=== PATIENT | male | born 1970 | race Caucasian/White ===

== ENCOUNTER 2016-10-18 15:32 | Emergency (ER) | payer OTHER ==
--- NOTE | 2016-10-18 16:20 | DIAGNOSTIC IMAGING REPORT ---
PROCEDURE: XR CHEST 1 VIEW INDICATION: CHEST PAIN TECHNIQUE: Portable AP view 04:02 p.m. COMPARISON: Chest x-ray 09/27/2015 FINDINGS: Poor inspiration with minor bibasilar atelectasis. Heart and mediastinum are normal. Moderate degenerative changes of the spine. IMPRESSION: 1. Poor inspiration with minor bibasilar atelectasis.
--- NOTE | 2016-10-18 18:27 | DIAGNOSTIC IMAGING REPORT ---
PROCEDURE: XR HAND 3 OR 4 VIEWS - RIGHT INDICATION: Fall off of a truck TECHNIQUE: Four views of the right hand. COMPARISON: None. FINDINGS: Normal mineralization. No fractures. Normal osseous alignment. No suspicious soft-tissue calcification or radiodense foreign bodies. IMPRESSION: 1. Intact right hand.
--- NOTE | 2016-10-18 20:53 | ED CLINICAL REPORT ---
Clinical Report - Physicians/Mid Levels [facility] [address] [place] [address] 10/18/2016 15:33 Patient: FAINA PACHECO Time Seen: 15:36 Oct 18 2016. Arrived- By private vehicle. Historian- patient. CPT: ER phys charges level 5 plus (#[id number]). EKG interpretation (#[id number]). HISTORY OF PRESENT ILLNESS Chief Complaint: CHEST PAIN. SHORTNESS OF BREATH. It is described as sharp, "pain" and well localized and it is described as located in the epigastric area and substernal area. At its maximum, severity described as moderate and 6 / 10. When seen in the E.D., severity described as moderate and 6 / 10. Modifying factors- worsened by movement and deep breaths. Not relieved by anything. This started yesterday and is still present. Onset during light activity. No nausea, vomiting or diaphoresis. He has had difficulty breathing. Similar symptoms previously: None. Recent medical care: Not recently seen/assessed. REVIEW OF SYSTEMS No fever, chills, cough, pedal edema or calf pain. No fainting episodes, sore throat, abdominal pain, black stools or difficulty with urination. No skin rash, enlarged lymph nodes, joint pain or bloody stools. All systems otherwise negative, except as recorded above. PAST HISTORY GI disease. Anxiety Reaction. Hyperlipidemia. Hypercholesterolemia. UTI - Urinary Tract Infection. Hypertension. Cellulitis. Chalazion. Cystitis. Diabetes Mellitus. Sinusitis. Bronchitis. No history of heart disease, lung disease, renal disease or neurological disease. Severe gastroesophageal reflux. Additional Surgeries: no known surgeries. Medications: Blood Pressure pill (new med). chlesterol med. Glipizide Oral. MetFORMIN HCl Oral. Allergies: No Known Drug Allergy. SOCIAL HISTORY Former smoker. ADDITIONAL NOTES The nursing notes have been reviewed. PHYSICAL EXAM Vital Signs: 10/18/2016 15:37 BP: 132/73. HR: 81. RR: 141. O2 saturation: 98%. Temp: 98.1 F. Pain level now: 5/10. Appearance: Alert. Oriented X3. No acute distress. Eyes: Pupils equal, round and reactive to light. Eyes normal inspection. ENT: Ears normal. Nose normal. Pharynx normal. Neck: Normal inspection. Neck supple. CVS: Normal heart rate and rhythm. Heart sounds normal. Pulses normal. Respiratory: No respiratory distress. Breath sounds normal. (Tender over the lower costal margin centrally.). Abdomen: Soft. Moderate tenderness in the epigastric area. Bowel sounds normal. No mass. No distention or femoral pulse deficit. (No bruit). Back: Normal external inspection. No CVA tenderness. Skin: Skin warm. Normal skin color. No rash. Extremities: Extremities exhibit normal ROM. No lower extremity edema. Neuro: Oriented X 3. No motor deficit. No sensory deficit. Reflexes normal. LABS, X-RAYS, AND EKG EKG: Normal sinus rhythm. Normal P waves. Normal COLETTE. Normal QRS complex. Normal axis. Normal ST and T waves. The study has been interpreted contemporaneously. The study has been independently viewed by me. The EKG appears to be a good tracing. Chest X-ray: (mild bibasilar atelectasis). Views: AP (portable). Technique: poor inspiration. The X-rays were independently viewed by me and interpreted by the radiologist. Laboratory Tests: ESR: (MARCIE: 10/18/2016 15:30) ( [facility] 10/18[facility] 17:14) Final results Test Result Flag Units (Reference) SED RATE WESTERGREN 24 H mm/hr (0-15) CBC w Diff: (MARCIE: 10/18/2016 15:30) ( [facility] 10/18/2016 16:05) Final results Test Result Flag Units (Reference) WHITE BLOOD COUNT 8.3 K/uL (4.5-11.5) RED BLOOD COUNT 4.39 L M/uL (4.50-5.90) HEMOGLOBIN 13.6 gm/dL (13.5-17.5) HEMATOCRIT 40.6 L % (41.0-53.0) MEAN CELL VOLUME 92 fL (80-100) MEAN CORPUSCULAR HGB 31 pg (26-34) MEAN CORPUSCULAR HGB CONC 34 g/dL (31-37) RED CELL DISTRIBUTION WIDTH 14.1 % (11.6-14.8) PLATELET COUNT 220 K/uL (150-400) NEUTROPHIL % 58.0 % (50-75) LYMPH % 30.6 % (25-40) MONO % 8.2 % (3-14) EOSINOPHIL % 2.8 % (0-4) BASOPHIL % 0.4 % (0-2) [id number]: (MARCIE: 10/18/2016 15:30) ( [facility] 10/18/2016 18:24) Final results Test Result Flag Units (Reference) D-DIMER QUANTITATIVE < 0.27 L ug/mLFEU (0.27-0.52) The primary value of this quantitative assay relates toits negative predictive value (i.e. exclusion) of pulmonaryembolism/deep vein thrombosis/DIC.Elevated levels of d-dimer may also occur with:, age, cancer, inflammation, liver disease,post-op, infection, hematoma, coronary disease, peripheralarteriopathy, bleeding disorders and thrombolytic treatment.Results should be correlated with other clinical andradiological data.Testing Methodology: Latex Immunoassay Troponin-I: (MARCIE: 10/18/2016 19:45) ( [facility] 10/18/2016 20:47) Final results Test Result Flag Units (Reference) TROPONIN I <0.05 ng/mL (0.00-1.5) Results calledPerson contacted: DR Wright the result read back? Y]Date: 10/18/16 Time: y: LAB.CDGTROPONIN REFERENCE RANGE:<0.1 NEGATIVE0.1-1.5 INDETERMINANT>1.5 POSITIVE Lipase: (MARCIE: 10/18/2016 15:30) ( [facility] 10/18/2016 18:37) Final results Test Result Flag Units (Reference) LIPASE 165 U/L (73-393) AMYLASE 54 U/L (25-115) [id number]: (MARCIE: 10/18/2016 15:30) ( MsgRcvd 10/18/2016 16:59) Final results Test Result Flag Units (Reference) C-REACTIVE PROTEIN 0.5 mg/dL (0.0-0.9) CHEM 13 PANEL: (MARCIE: 10/18/2016 15:30) ( MsgRcvd 10/18/2016 16:18) Final results Test Result Flag Units (Reference) GLUCOSE 188 H mg/dL (70-110) BUN 13 mg/dL (7-18) CREATININE 1.0 mg/dL (0.6-1.3) Estimated GFR >60 mL/min Estimated GFR- >60 mL/min Note: Persistent reduction over 3 months in eGFR<60 mL/min/1.73 m2 defines CKD. Patients with eGFR values>=60 mL/min/1.73 m2 may also have CKD if evidence ofpersistent proteinuria. Additional information may be foundat www.kidney.org. SODIUM 140 mmol/L (136-145) POTASSIUM 3.8 mmol/L (3.5-5.1) CHLORIDE 104 mmol/L (98-107) CARBON DIOXIDE 29 mmol/L (21-32) CALCIUM 9.0 mg/dL (8.5-10.1) TOTAL PROTEIN 8.1 g/dL (6.4-8.2) ALBUMIN 3.6 g/dL (3.3-5.0) BILIRUBIN, TOTAL 0.6 mg/dL (0.0-1.0) ALKALINE PHOSPHATASE 85 U/L (46-116) AST (SGOT) 29 U/L (15-37) ALT (SGPT) 57 U/L (12-78) MAGNESIUM 2.1 mg/dL (1.8-2.4) CPK 118 U/L (24-260) TROPONIN I <0.05 L ng/mL (0.00-1.5) TROPONIN REFERENCE RANGE:<0.1 NEGATIVE0.1-1.5 INDETERMINANT>1.5 POSITIVE . PROGRESS AND PROCEDURES Course of Care: heplock White GI cocktail. Pain down to a 2 Carafate 20 ml po Protonix 80 mg IV Patient is stable. Symptoms much better. Patient/family counseled. Disposition: Discharged. Condition: stable and improved. CLINICAL IMPRESSION Chest pain of GI origin (due to esophagitis). INSTRUCTIONS No strenuous activity. Do not work tomorrow, for one day until better. Avoid alcohol and NSAIDS. Examples of NSAIDS include aspirin, ibuprofen (Advil) and naproxen (Aleve). Avoid spicy foods. Drink plenty of fluids. Other diet: caffeine. Warnings: Further evaluation is necessary. GENERAL WARNINGS: Return or contact your physician immediately if your condition worsens or changes unexpectedly, if not improving as expected, or if other problems arise. Prescription Medications: Carafate 1 gm tablets: take 1 orally four times daily (1 hour before meals and at bedtime). Dispense sixty (60). No refills. Substitution is permissible. Prilosec 40 mg capsules: take 1 capsule orally every day for 10 days. Dispense ten (10). No refill. Follow-up: Follow up with your doctor in five days even if well. Call for an appointment. Understanding of the discharge instructions verbalized by patient. Discharge instructions reviewed (friend). (Electronically signed by Ankit Henderson MD 10/18/2016 21:59)
--- NOTE | 2016-10-18 20:53 | ED ORDER SUMMARY ---
..... Patient: FAINA PACHECO OrderSheet [facility] VisitID: [id number] [place] [address] 45y, M Registration Date/Time: 10/18/2016 ORDER SHEET Weight: 129.2 kg (stated) Allergies: No Known Drug Allergy GENERAL ORDERS: Biological Aide (Continuous) (SOB w/CP) (15:51 10/18/2016 JRdelphine R.N. verbal order read back to Garret EDWARDS) (16:42 JRomanelli R.N.) Chest 1V Urgent (15:51 10/18/2016 John R.N. verbal order read back to Garret EDWARDS) (Ack 15:54 Shahrzad) (16:23 Faviola) Cardiac Panel Stat (15:51 10/18/2016 John R.N. verbal order read back to Garret EDWARDS) (Ack 15:54 Shahzrad) (16:43 JRomanelli R.N.) EKG - ER Stat (15:51 10/18/2016 John R.N. verbal order read back to Garret EDWARDS) (15:53 Shahrzad) Pulse oximeter (15:51 10/18/2016 John R.N. verbal order read back to Garret EDWARDS) (16:42 JRomanelli R.N.) Old Records (15:51 10/18/2016 John R.N. verbal order read back to Garret EDWARDS) (Ack 15:54 Shahrzad) (17:44 JRomanelli R.N.) ESR Urgent (16:42 10/18/2016 Garret EDWARDS) (Ack 16:44 Shahrzad) (17:44 omanelli R.N.) CRP Urgent (16:42 10/18/2016 Garret EDWARDS) (Ack 16:44 Shahrzad) (17:44 JRomanelli R.N.) Hand 3 or 4V Right Urgent (17:56 10/18/2016 Garret EDWARDS) (Ack 17:57 Shahrzad) (18:12 MCampbell) D-Dimer Urgent (17:56 10/18/2016 Garret EDWARDS) (Ack 17:57 KHoerner) (18:13 JRomanelli R.N.) (18:19 KHoerner) Lipase Urgent (17:56 10/18/2016 Garret EDWARDS) (Ack 17:57 KHoerner) (18:13 JRomanelli R.N.) (18:19 KHoerner) Amylase Urgent (17:56 10/18/2016 Garret EDWARDS) (Ack 17:57 KHoerner) (18:13 JRomanelli R.N.) (18:19 KHoerner) BP - Bilateral Arm (18:08 10/18/2016 Garret EDWARDS) (18:15 John R.N.) Troponin-I Urgent (19:30 10/18/2016 Garret EDWARDS) (Ack 19:35 LMuller) (20:51 HSoule) MEDICATION ORDERS: GI Cocktail WHITE PO 50 mL (NOW) (16:43 10/18/2016 Garret EDWARDS) (17:44 omanrosa R.N.) Carafate PO 20 ml (NOW) (17:56 10/18/2016 Garret EDWARDS) (18:23 John R.N.) IV FLUIDS: IV Saline Lock (15:51 10/18/2016 John R.N. verbal order read back to Garret EDWARDS) (17:21 JRomanelli R.N.) Protonix IVP 80mg 80 mg (Mix in NS 20ml over 4min) (17:56 10/18/2016 Garret EDWARDS) (18:30 omanrosa R.N.) ORDER SHEET NOTES: [Electronically signed by Ankit Henderson MD (21:59 10/18/2016)] [Electronically signed by Destiny Little (22:05 10/18/2016)] [Electronically locked/signed by Destiny Little (22:05 10/18/2016)]
--- NOTE | 2016-10-18 20:53 | ED CLINICAL REPORT ---
Clinical Report - Physicians/Mid Levels [facility] [address] [place] [address] 10/18/2016 15:33 Patient: FAINA PACHECO Time Seen: 15:36 Oct 18 2016. Arrived- By private vehicle. Historian- patient. CPT: ER phys charges level 5 plus (#[id number]). EKG interpretation (#[id number]). HISTORY OF PRESENT ILLNESS Chief Complaint: CHEST PAIN. SHORTNESS OF BREATH. It is described as sharp, "pain" and well localized and it is described as located in the epigastric area and substernal area. At its maximum, severity described as moderate and 6 / 10. When seen in the E.D., severity described as moderate and 6 / 10. Modifying factors- worsened by movement and deep breaths. Not relieved by anything. This started yesterday and is still present. Onset during light activity. No nausea, vomiting or diaphoresis. He has had difficulty breathing. Similar symptoms previously: None. Recent medical care: Not recently seen/assessed. REVIEW OF SYSTEMS No fever, chills, cough, pedal edema or calf pain. No fainting episodes, sore throat, abdominal pain, black stools or difficulty with urination. No skin rash, enlarged lymph nodes, joint pain or bloody stools. All systems otherwise negative, except as recorded above. PAST HISTORY GI disease. Anxiety Reaction. Hyperlipidemia. Hypercholesterolemia. UTI - Urinary Tract Infection. Hypertension. Cellulitis. Chalazion. Cystitis. Diabetes Mellitus. Sinusitis. Bronchitis. No history of heart disease, lung disease, renal disease or neurological disease. Severe gastroesophageal reflux. Additional Surgeries: no known surgeries. Medications: Blood Pressure pill (new med). chlesterol med. Glipizide Oral. MetFORMIN HCl Oral. Allergies: No Known Drug Allergy. SOCIAL HISTORY Former smoker. ADDITIONAL NOTES The nursing notes have been reviewed. PHYSICAL EXAM Vital Signs: 10/18/2016 15:37 BP: 132/73. HR: 81. RR: 141. O2 saturation: 98%. Temp: 98.1 F. Pain level now: 5/10. Appearance: Alert. Oriented X3. No acute distress. Eyes: Pupils equal, round and reactive to light. Eyes normal inspection. ENT: Ears normal. Nose normal. Pharynx normal. Neck: Normal inspection. Neck supple. CVS: Normal heart rate and rhythm. Heart sounds normal. Pulses normal. Respiratory: No respiratory distress. Breath sounds normal. (Tender over the lower costal margin centrally.). Abdomen: Soft. Moderate tenderness in the epigastric area. Bowel sounds normal. No mass. No distention or femoral pulse deficit. (No bruit). Back: Normal external inspection. No CVA tenderness. Skin: Skin warm. Normal skin color. No rash. Extremities: Extremities exhibit normal ROM. No lower extremity edema. Neuro: Oriented X 3. No motor deficit. No sensory deficit. Reflexes normal. LABS, X-RAYS, AND EKG EKG: Normal sinus rhythm. Normal P waves. Normal COLETTE. Normal QRS complex. Normal axis. Normal ST and T waves. The study has been interpreted contemporaneously. The study has been independently viewed by me. The EKG appears to be a good tracing. Chest X-ray: (mild bibasilar atelectasis). Views: AP (portable). Technique: poor inspiration. The X-rays were independently viewed by me and interpreted by the radiologist. Laboratory Tests: ESR: (MARCIE: 10/18/2016 15:30) ( [facility] 10/18/2016 17:14) Final results Test Result Flag Units (Reference) SED RATE WESTERGREN 24 H mm/hr (0-15) CBC w Diff: (MARCIE: 10/18/2016 15:30) ( [facility] 10/18/2016 16:05) Final results Test Result Flag Units (Reference) WHITE BLOOD COUNT 8.3 K/uL (4.5-11.5) RED BLOOD COUNT 4.39 L M/uL (4.50-5.90) HEMOGLOBIN 13.6 gm/dL (13.5-17.5) HEMATOCRIT 40.6 L % (41.0-53.0) MEAN CELL VOLUME 92 fL (80-100) MEAN CORPUSCULAR HGB 31 pg (26-34) MEAN CORPUSCULAR HGB CONC 34 g/dL (31-37) RED CELL DISTRIBUTION WIDTH 14.1 % (11.6-14.8) PLATELET COUNT 220 K/uL (150-400) NEUTROPHIL % 58.0 % (50-75) LYMPH % 30.6 % (25-40) MONO % 8.2 % (3-14) EOSINOPHIL % 2.8 % (0-4) BASOPHIL % 0.4 % (0-2) [id number]: (MARCIE: 10/18/2016 15:30) ( [facility] 10/18/2016 18:24) Final results Test Result Flag Units (Reference) D-DIMER QUANTITATIVE < 0.27 L ug/mLFEU (0.27-0.52) The primary value of this quantitative assay relates toits negative predictive value (i.e. exclusion) of pulmonaryembolism/deep vein thrombosis/DIC.Elevated levels of d-dimer may also occur with:, age, cancer, inflammation, liver disease,post-op, infection, hematoma, coronary disease, peripheralarteriopathy, bleeding disorders and thrombolytic treatment.Results should be correlated with other clinical andradiological data.Testing Methodology: Latex Immunoassay Troponin-I: (MARCIE: 10/18/2016 19:45) ( [facility] 10/18/2016 20:47) Final results Test Result Flag Units (Reference) TROPONIN I <0.05 ng/mL (0.00-1.5) Results calledPerson contacted: DR Wright the result read back? Y]Date: 10/18/16 Time: y: LAB.CDGTROPONIN REFERENCE RANGE:<0.1 NEGATIVE0.1-1.5 INDETERMINANT>1.5 POSITIVE Lipase: (MARCIE: 10/18/2016 15:30) ( [facility] 10/18/2016 18:37) Final results Test Result Flag Units (Reference) LIPASE 165 U/L (73-393) AMYLASE 54 U/L (25-115) [id number]: (MARCIE: 10/18/2016 15:30) ( MsgRcvd 10/18/2016 16:59) Final results Test Result Flag Units (Reference) C-REACTIVE PROTEIN 0.5 mg/dL (0.0-0.9) CHEM 13 PANEL: (MARCIE: 10/18/2016 15:30) ( MsgRcvd 10/18/2016 16:18) Final results Test Result Flag Units (Reference) GLUCOSE 188 H mg/dL (70-110) BUN 13 mg/dL (7-18) CREATININE 1.0 mg/dL (0.6-1.3) Estimated GFR >60 mL/min Estimated GFR- >60 mL/min Note: Persistent reduction over 3 months in eGFR<60 mL/min/1.73 m2 defines CKD. Patients with eGFR values>=60 mL/min/1.73 m2 may also have CKD if evidence ofpersistent proteinuria. Additional information may be foundat www.kidney.org. SODIUM 140 mmol/L (136-145) POTASSIUM 3.8 mmol/L (3.5-5.1) CHLORIDE 104 mmol/L (98-107) CARBON DIOXIDE 29 mmol/L (21-32) CALCIUM 9.0 mg/dL (8.5-10.1) TOTAL PROTEIN 8.1 g/dL (6.4-8.2) ALBUMIN 3.6 g/dL (3.3-5.0) BILIRUBIN, TOTAL 0.6 mg/dL (0.0-1.0) ALKALINE PHOSPHATASE 85 U/L (46-116) AST (SGOT) 29 U/L (15-37) ALT (SGPT) 57 U/L (12-78) MAGNESIUM 2.1 mg/dL (1.8-2.4) CPK 118 U/L (24-260) TROPONIN I <0.05 L ng/mL (0.00-1.5) TROPONIN REFERENCE RANGE:<0.1 NEGATIVE0.1-1.5 INDETERMINANT>1.5 POSITIVE . PROGRESS AND PROCEDURES Course of Care: heplock White GI cocktail. Pain down to a 2 Carafate 20 ml po Protonix 80 mg IV Patient is stable. Symptoms much better. Patient/family counseled. Disposition: Discharged. Condition: stable and improved. CLINICAL IMPRESSION Chest pain of GI origin (due to esophagitis). INSTRUCTIONS No strenuous activity. Do not work tomorrow, for one day until better. Avoid alcohol and NSAIDS. Examples of NSAIDS include aspirin, ibuprofen (Advil) and naproxen (Aleve). Avoid spicy foods. Drink plenty of fluids. Other diet: caffeine. Warnings: Further evaluation is necessary. GENERAL WARNINGS: Return or contact your physician immediately if your condition worsens or changes unexpectedly, if not improving as expected, or if other problems arise. Prescription Medications: Carafate 1 gm tablets: take 1 orally four times daily (1 hour before meals and at bedtime). Dispense sixty (60). No refills. Substitution is permissible. Prilosec 40 mg capsules: take 1 capsule orally every day for 10 days. Dispense ten (10). No refill. Follow-up: Follow up with your doctor in five days even if well. Call for an appointment. Understanding of the discharge instructions verbalized by patient. Discharge instructions reviewed (friend). (Electronically signed by Ankit Henderson MD 10/18/2016 21:59)
--- NOTE | 2016-10-18 20:53 | ED NURSING NOTES ---
Clinical Report - Nurses [facility] [place] [address] 10/18/2016 15:33 Patient: FAINA PACHECO TRIAGE Triage time 15:35 Oct 18 2016. Acuity: LEVEL 3. Chief Complaint: SHORTNESS OF BREATH and (Chest Discomfort). Alert. ALFREDO COMA SCORE: [place] Coma Scale: 15- eyes open spontaneously (4); best verbal response- oriented x 4 (5); best motor response- obeys commands (6). --15:46 Bryson Tobin R.N. 15:37 10/18/16. BP: 132/73. HR: 81 (regular and normal rate). RR: 141. O2 saturation: 98% on room air. Temp: 98.1 F. Pain level now: 09/19. --15:46 Bryson Tobin R.N. Weight: 129.2 kg stated. Height/Length: 71 inches Measured. BMI: 39.7. --15:42 Bryson Tobin R.N. Medications Blood Pressure pill (new med). chlesterol med. Glipizide Oral. MetFORMIN HCl Oral. --15:42 Bryson Tobin R.N. Medication/allergy information source: the patient. --15:46 Bryson Tobin R.N. Allergies No Known Drug Allergy. --15:42 Bryson Tobin R.N. History Arrived by private vehicle. Historian: patient. ( Sob associated with Chest Pain substernally). Onset. (about 2 days ago). He has had chest pain. Treatment AWNING FINISHER: None. PAST MEDICAL HX: Immunizations: status is unknown. SURGERY HX: No history of previous surgery. SOCIAL HX: Former smoker, end date 04/2016. No infectious disease exposure. ABUSE ASSESSMENT: No report of abuse. FALL RISK ASSESSMENT: Fall risk assessment completed. No fall risk identified. NUTRITIONAL RISK ASSESSMENT: The nutritional risk assessment revealed no deficiencies. FUNCTIONAL ASSESSMENT: Functional assessment: no impairments noted. LEARNING NEEDS ASSESSMENT: The learning needs assessment revealed no barriers. SKIN INTEGRITY ASSESSMENT: Skin integrity risk assessment completed. No skin integrity risk identified. --15:46 Bryson Tobin R.N. PROBLEMS: Anxiety Reaction. Hyperlipidemia. Hypercholesterolemia. UTI - Urinary Tract Infection. Hypertension. Cellulitis. Chalazion. Cystitis. Diabetes Mellitus. Sinusitis. Bronchitis. --15:45 Bryson Tobin R.N. Interventions ID band on patient. To treatment room. --15:46 Bryson Tobin R.N. PHYSICAL ASSESSMENT To room via wheelchair. GENERAL / NEURO / PSYCH: Alert. Oriented X 4. HEENT: Mucous membranes are pink. RESPIRATORY: No respiratory distress. Respirations not labored. CVS: Normal sinus rhythm noted. GI / : Abdomen soft and nontender. SKIN: Skin is warm and dry. Normal skin turgor. --15:46 Bryson Tobin R.N. RESPIRATORY: Decreased breath sounds in the right upper lung posteriorly. --15:49 Bryson Tobin R.N. NURSING PROGRESS NOTES Patient gowned. Reassurance given. Patient identifiers checked. Call light placed in reach. Side rails up. Bed placed in lowest position. Brakes of bed on. Patient ready for evaluation- chart flagged and ED physician notified. --15:50 Bryson Tobin R.N. 16:56 10/18/2016 Site #1 started via IV in the right forearm with an 20g angiocath, with aseptic technique and good blood return; one attempt. Blood drawn: rainbow set. Labeled in the presence of the patient and sent to the lab. Saline lock flushed with 10 mL saline. --17:21 Bryson Tobin R.N. 17:33 10/18/2016 White Gi Cocktail * PO Viscous Lidocaine 20 Viscous Lidocaine 20 mL and Mylanta 30 mL --17:44 Bryson Tobin R.N. 18:00 10/18/16. BP: 124/74. HR: 64. RR: 20. O2 saturation: 98% on room air. Pain level now: 07/20. Additional comments: Chest Pain. --18:13 Bryson Tobin R.N. 18:20 10/18/2016 Protonix * IVP 80 mg --18:30 Bryson Tobin R.N. 18:23 10/18/2016 Carafate (Sucralfate) PO Oral Suspension 2 gm given. Allergies verified and confirmed 5 rights. --18:23 Bryson Tobin R.N. Blood samples drawn from the right antecubital space peripheral IV site: cardiac enzymes (2nd set). Initial blood discarded and additional blood sent to lab. Line flushed with 10 mL normal saline post blood draw. --19:49 Destiny Little 19:49 10/18/16. BP: 125/76. HR: 70. RR: 16. O2 saturation: 99% on nasal cannula at 2 liters/minute. Pain level now: 07/20. Additional comments: Pain only with deep breath . --19:49 Destiny Little ( Patient and department editor updated on plan of care). --20:02 Destiny Little 20:54 10/18/2016 Site #1 removed upon discharge. Catheter intact. Bandaid applied. --20:54 Destiny Little. DISPOSITION / DISCHARGE 20:51 10/18/16. Condition at departure: improved and stable. The goals identified in the patient's plan of care were met. FALL RISK ASSESSMENT: Fall risk assessment completed. No fall risk identified. --20:51 Destiny Little 20:50 10/18/16. BP: 131/78. HR: 71. RR: 18. O2 saturation: 97% on room air. Pain level now: 07/20. --20:51 Destiny Little No learning barriers present. Discharge instructions provided and reviewed with the patient. Reviewed medication(s) side effects, precautions, dosing and course information. Prescription(s) given to the patient. Reviewed need for increased fluid intake. Patient and department editor verbalized understanding. Written instructions provided in Slovenian. ( Follow up with your PCP in three days. Return if your symptoms worsen or change in character. Reduce spicy and greasy food. Patient verbalized understanding and had no additional questions at this time.). The patient was discharged by the physician. He was discharged home and accompanied by department editor. He left the Emergency Department ambulatory and via private vehicle. Acid Crane Operator driving. --22:00 Destiny Little. Locked/Released at 10/18/2016 22:05 by Destiny Ltitle,
--- NOTE | 2016-10-18 20:53 | ED NURSING NOTES ---
Clinical Report - Nurses [facility] [place] [address] 10/18/2016 15:33 Patient: FAINA PACHECO TRIAGE Triage time 15:35 Oct 18 2016. Acuity: LEVEL 3. Chief Complaint: SHORTNESS OF BREATH and (Chest Discomfort). Alert. ALFREDO COMA SCORE: [place] Coma Scale: 15- eyes open spontaneously (4); best verbal response- oriented x 4 (5); best motor response- obeys commands (6). --15:46 Bryson Tobin R.N. 15:37 10/18/16. BP: 132/73. HR: 81 (regular and normal rate). RR: 141. O2 saturation: 98% on room air. Temp: 98.1 F. Pain level now: 09/19. --15:46 Bryson Tobin R.N. Weight: 129.2 kg stated. Height/Length: 71 inches Measured. BMI: 39.7. --15:42 Bryson Tobin R.N. Medications Blood Pressure pill (new med). chlesterol med. Glipizide Oral. MetFORMIN HCl Oral. --15:42 Bryson Tobin R.N. Medication/allergy information source: the patient. --15:46 Bryson Tobin R.N. Allergies No Known Drug Allergy. --15:42 Bryson Tobin R.N. History Arrived by private vehicle. Historian: patient. ( Sob associated with Chest Pain substernally). Onset. (about 2 days ago). He has had chest pain. Treatment HEADLIGHT ADJUSTER: None. PAST MEDICAL HX: Immunizations: status is unknown. SURGERY HX: No history of previous surgery. SOCIAL HX: Former smoker, end date 04/2016. No infectious disease exposure. ABUSE ASSESSMENT: No report of abuse. FALL RISK ASSESSMENT: Fall risk assessment completed. No fall risk identified. NUTRITIONAL RISK ASSESSMENT: The nutritional risk assessment revealed no deficiencies. FUNCTIONAL ASSESSMENT: Functional assessment: no impairments noted. LEARNING NEEDS ASSESSMENT: The learning needs assessment revealed no barriers. SKIN INTEGRITY ASSESSMENT: Skin integrity risk assessment completed. No skin integrity risk identified. --15:46 Bryson Tobin R.N. PROBLEMS: Anxiety Reaction. Hyperlipidemia. Hypercholesterolemia. UTI - Urinary Tract Infection. Hypertension. Cellulitis. Chalazion. Cystitis. Diabetes Mellitus. Sinusitis. Bronchitis. --15:45 Bryson Tobin R.N. Interventions ID band on patient. To treatment room. --15:46 Bryson Tobin R.N. PHYSICAL ASSESSMENT To room via wheelchair. GENERAL / NEURO / PSYCH: Alert. Oriented X 4. HEENT: Mucous membranes are pink. RESPIRATORY: No respiratory distress. Respirations not labored. CVS: Normal sinus rhythm noted. GI / : Abdomen soft and nontender. SKIN: Skin is warm and dry. Normal skin turgor. --15:46 Bryson Tobin R.N. RESPIRATORY: Decreased breath sounds in the right upper lung posteriorly. --15:49 Bryson Tobin R.N. NURSING PROGRESS NOTES Patient gowned. Reassurance given. Patient identifiers checked. Call light placed in reach. Side rails up. Bed placed in lowest position. Brakes of bed on. Patient ready for evaluation- chart flagged and ED physician notified. --15:50 Bryson Tobin R.N. 16:56 10/18/2016 Site #1 started via IV in the right forearm with an 20g angiocath, with aseptic technique and good blood return; one attempt. Blood drawn: rainbow set. Labeled in the presence of the patient and sent to the lab. Saline lock flushed with 10 mL saline. --17:21 Bryson Tobin R.N. 17:33 10/18/2016 White Gi Cocktail * PO Viscous Lidocaine 20 Viscous Lidocaine 20 mL and Mylanta 30 mL --17:44 Bryson Tobin R.N. 18:00 10/18/16. BP: 124/74. HR: 64. RR: 20. O2 saturation: 98% on room air. Pain level now: 07/20. Additional comments: Chest Pain. --18:13 Bryson Tobin R.N. 18:20 10/18/2016 Protonix * IVP 80 mg --18:30 Bryson Tobin R.N. 18:23 10/18/2016 Carafate (Sucralfate) PO Oral Suspension 2 gm given. Allergies verified and confirmed 5 rights. --18:23 Bryson Tobin R.N. Blood samples drawn from the right antecubital space peripheral IV site: cardiac enzymes (2nd set). Initial blood discarded and additional blood sent to lab. Line flushed with 10 mL normal saline post blood draw. --19:49 Destiny Little 19:49 10/18/16. BP: 125/76. HR: 70. RR: 16. O2 saturation: 99% on nasal cannula at 2 liters/minute. Pain level now: 07/20. Additional comments: Pain only with deep breath . --19:49 Destiny Little ( Patient and calculator operator updated on plan of care). --20:02 Destiny Little 20:54 10/18/2016 Site #1 removed upon discharge. Catheter intact. Bandaid applied. --20:54 Destiny Little. DISPOSITION / DISCHARGE 20:51 10/18/16. Condition at departure: improved and stable. The goals identified in the patient's plan of care were met. FALL RISK ASSESSMENT: Fall risk assessment completed. No fall risk identified. --20:51 Destiny Little 20:50 10/18/16. BP: 131/78. HR: 71. RR: 18. O2 saturation: 97% on room air. Pain level now: 07/20. --20:51 Destiny Little No learning barriers present. Discharge instructions provided and reviewed with the patient. Reviewed medication(s) side effects, precautions, dosing and course information. Prescription(s) given to the patient. Reviewed need for increased fluid intake. Patient and calculator operator verbalized understanding. Written instructions provided in Mozambican. ( Follow up with your PCP in three days. Return if your symptoms worsen or change in character. Reduce spicy and greasy food. Patient verbalized understanding and had no additional questions at this time.). The patient was discharged by the physician. He was discharged home and accompanied by calculator operator. He left the Emergency Department ambulatory and via private vehicle. Can Sorter driving. --22:00 Destiny Little. Locked/Released at 10/18/2016 22:05 by Destiny Little,
--- NOTE | 2016-10-18 20:53 | ED ORDER SUMMARY ---
..... Patient: FAINA PACHECO OrderSheet [facility] VisitID: [id number] [place] [address] 45y, M Registration Date/Time: 10/18/2016 ORDER SHEET Weight: 129.2 kg (stated) Allergies: No Known Drug Allergy GENERAL ORDERS: Machine Feller (Continuous) (SOB w/CP) (15:51 10/18/2016 JRdelphine R.N. verbal order read back to Garret EDWARDS) (16:42 JRomanelli R.N.) Chest 1V Urgent (15:51 10/18/2016 John R.N. verbal order read back to Garret EDWARDS) (Ack 15:54 Shahrzad) (16:23 Faviola) Cardiac Panel Stat (15:51 10/18/2016 John R.N. verbal order read back to Garret EDWARDS) (Ack 15:54 Shahrzad) (16:43 JRomanelli R.N.) EKG - ER Stat (15:51 10/18/2016 John R.N. verbal order read back to Garret EDWARDS) (15:53 Shahrzad) Pulse oximeter (15:51 10/18/2016 John R.N. verbal order read back to Garret EDWARDS) (16:42 JRomanelli R.N.) Old Records (15:51 10/18/2016 John R.N. verbal order read back to Garret EDWARDS) (Ack 15:54 Shahrzad) (17:44 JRomanelli R.N.) ESR Urgent (16:42 10/18/2016 Garret EDWARDS) (Ack 16:44 Shahrzad) (17:44 omanelli R.N.) CRP Urgent (16:42 10/18/2016 Garret EDWARDS) (Ack 16:44 Shahrzad) (17:44 JRomanelli R.N.) Hand 3 or 4V Right Urgent (17:56 10/18/2016 Garret EDWARDS) (Ack 17:57 Shahrzad) (18:12 MCampbell) D-Dimer Urgent (17:56 10/18/2016 Garret EDWARDS) (Ack 17:57 KHoerner) (18:13 JRomanelli R.N.) (18:19 KHoerner) Lipase Urgent (17:56 10/18/2016 Garret EDWARDS) (Ack 17:57 KHoerner) (18:13 JRomanelli R.N.) (18:19 KHoerner) Amylase Urgent (17:56 10/18/2016 Garret EDWARDS) (Ack 17:57 KHoerner) (18:13 JRomanelli R.N.) (18:19 KHoerner) BP - Bilateral Arm (18:08 10/18/2016 Garret EDWARDS) (18:15 John R.N.) Troponin-I Urgent (19:30 10/18/2016 Garret EDWARDS) (Ack 19:35 LMuller) (20:51 HSoule) MEDICATION ORDERS: GI Cocktail WHITE PO 50 mL (NOW) (16:43 10/18/2016 Garret EDWARDS) (17:44 omanrosa R.N.) Carafate PO 20 ml (NOW) (17:56 10/18/2016 Garret EDWARDS) (18:23 John R.N.) IV FLUIDS: IV Saline Lock (15:51 10/18/2016 Jhon R.N. verbal order read back to Garret EDWARDS) (17:21 JRomanelli R.N.) Protonix IVP 80mg 80 mg (Mix in NS 20ml over 4min) (17:56 10/18/2016 Garret EDWARDS) (18:30 omanrosa R.N.) ORDER SHEET NOTES: [Electronically signed by Ankit Henderson MD (21:59 10/18/2016)] [Electronically signed by Destiny Little (22:05 10/18/2016)] [Electronically locked/signed by Destiny Little (22:05 10/18/2016)]
--- NOTE | 2016-10-18 22:06 | ED MED RECONCILIATION SUMMARY ---
Patient: FAINA PACHECO Medication Reconciliation Report Merged With [facility] VisitID: [id number] [address] [place] [address] 45y, M Registration Date/Time: 10/18/2016 Weight: 129.2 kg Height/Length: 71 in. BMI: 39.7 ALLERGIES: No Known Drug Allergy The patient's Home Medications are listed below: THE FOLLOWING MEDICATIONS NEED TO BE RECONCILED: Blood Pressure pill (new med) chlesterol med Glipizide Oral MetFORMIN HCl Oral The source(s) of the original Home Medication information: patient The following Medications were given to the patient in the Emergency Department: White Gi Cocktail PO Viscous Lidocaine 20, administered: 10/18/2016 5:33:00 PM Carafate [PO] PO 2 gm, administered: 10/18/2016 6:23:00 PM Protonix IVP 80 mg, administered: 10/18/2016 6:20:00 PM The following Medications were prescribed to the patient: Carafate 1 gm tablets: take 1 orally four times daily (1 hour before meals and at bedtime). Dispense sixty (60). No refills. Substitution is permissible. -- Ankit Henderson MD Prilosec 40 mg capsules: take 1 capsule orally every day for 10 days. Dispense ten (10). No refill. -- Ankit Henderson MD
--- NOTE | 2016-10-18 22:06 | ED MAR SUMMARY ---
..... Medication Administration Record [facility] [address] [place] [address] Patient: FAINA PACHECO Visit ID: [id number] 45y, M Weight: 129.2 kg Height/Length: 71 in BMI: 39.7 ALLERGIES: No Known Drug Allergy Given 17:33 10/18/2016 Bryson Tobin, R.N. Medication Administered: White Gi Cocktail *, Dose: Viscous Lidocaine 20 * PO. Medication Ordered: GI Cocktail WHITE PO 50 mL (NOW). Given 18:20 10/18/2016 Bryson Tobin, R.N. Medication Administered: Protonix *, Dose: 80 mg * IVP. Medication Ordered: Protonix IVP 80mg 80 mg (Mix in NS 20ml over 4min). Given 18:23 10/18/2016 Bryson Tobin, R.N. Medication Administered: CARAFATE [PO] (SUCRALFATE), Dose: 2 gm Oral Suspension PO. Medication Ordered: Carafate PO 20 ml (NOW).
--- NOTE | 2016-10-18 22:06 | ED MAR SUMMARY ---
..... Medication Administration Record [facility] [address] [place] [address] Patient: FAINA PACHECO Visit ID: [id number] 45y, M Weight: 129.2 kg Height/Length: 71 in BMI: 39.7 ALLERGIES: No Known Drug Allergy Given 17:33 10/18/2016 Bryson Tobin, R.N. Medication Administered: White Gi Cocktail *, Dose: Viscous Lidocaine 20 * PO. Medication Ordered: GI Cocktail WHITE PO 50 mL (NOW). Given 18:20 10/18/2016 Bryson Tobin, R.N. Medication Administered: Protonix *, Dose: 80 mg * IVP. Medication Ordered: Protonix IVP 80mg 80 mg (Mix in NS 20ml over 4min). Given 18:23 10/18/2016 Bryson Tobin, R.N. Medication Administered: CARAFATE [PO] (SUCRALFATE), Dose: 2 gm Oral Suspension PO. Medication Ordered: Carafate PO 20 ml (NOW).
--- NOTE | 2016-10-18 22:06 | ED DISCHARGE INSTRUCTIONS ---
Patient: FAINA PACHECO General Instructions [facility] VisitID: [id number] [place] [address] 45y, M Registration Date/Time: 10/18/2016 Chest pain of GI origin (due to esophagitis). INSTRUCTIONS No strenuous activity. Do not work tomorrow, for one day until better. Avoid alcohol and NSAIDS. Examples of NSAIDS include aspirin, ibuprofen (Advil) and naproxen (Aleve). Avoid spicy foods. Drink plenty of fluids. Other diet: caffeine. Warnings: Further evaluation is necessary. GENERAL WARNINGS: Return or contact your physician immediately if your condition worsens or changes unexpectedly, if not improving as expected, or if other problems arise. Prescription Medications: Carafate 1 gm tablets: take 1 orally four times daily (1 hour before meals and at bedtime). Dispense sixty (60). No refills. Substitution is permissible. Prilosec 40 mg capsules: take 1 capsule orally every day for 10 days. Dispense ten (10). No refill. Follow-up: Follow up with your doctor in five days even if well. Call for an appointment. Understanding of the discharge instructions verbalized by patient. Discharge instructions reviewed (friend). ADDITIONAL INFORMATION GERD (Adult) The esophagus is a tube that carries food from the mouth to the stomach. A valve at the lower end of the esophagus prevents stomach acid from flowing upward. If this valve does not work properly, acid from the stomach enters the esophagus. If this occurs over and over, the acid will injure the lining of the esophagus. This condition is called GERD (gastroesophageal reflux disease) or acid reflux. When stomach acid flows upward into the esophagus, it causes burning, pressure or sharp pain in the upper abdomen or mid to lower chest. The pain can spread to the neck, back, or shoulder, similar to heart pain (angina). There may be belching, an acid taste in the back of the throat, chronic cough, or sore throat or hoarseness. GERD symptoms often occur during the day after a big meal, but it can also occur at night when lying down. Smoking,as well as drinking alcohol, increases the risk of GERD. GERD is a chronic condition. Once it begins, it is often lifelong. Treatment includes changes in eating habits and the use of acid amena medications to decrease the amount of acid in the stomach. Symptoms often improve with treatment, but if treatment is stopped, the symptoms usually return after a few months. So most persons with GERD will need to continue treatment. Home Care: Take the prescribed acid amena medication for the full course of treatment even if you begin to feel better sooner. This medication can take up to several days to fully control your symptoms. If you cant afford the prescribed medication, you can try ngdl-trv-rfgrcut acid blockers, such as Pepcid AC, Tagamet, Zantac, or Aciphex. If these do not relieve your symptoms, a stronger acid-amena can be tried, such as Prilosec OTC. You can use antacids, such as Tums, Rolaids, Mylanta, or Maalox, for pain. This will be useful the first few days after starting acid blockers when the blockers havent started working yet. Follow the directions on the label. Liquid antacids may work better than tablets. Note that antacids can interfere with absorption of certain medications. Specifically, do not take Tagamet (cimetidine), Zantac (ranitidine), or Carafate (sucralfate) within 1 hour of taking an antacid. Talk with your pharmacist if you have any questions. Limit or avoid fatty, fried, and spicy foods, as well as coffee, chocolate, mint, and foods with high acid content such as tomatoes and citrus fruit and juices (orange, grapefruit, lemon). Avoid alcohol and smoking. Dont eat large meals, especially at night. Frequent, smaller meals are best. Do not lie down right after eating. And dont eat anything 3 hours before going to bed. If you are overweight, losing weight will reduce symptoms. Women should not wear corsets or girdles because this increases pressure on the stomach and worsens reflux. If your symptoms occur during sleep, use a foam wedge to elevate your upper body (not just your head.) Or, place 4" blocks under the head of your bed. Follow Up with your doctor or as advised by our staff. Further testing may be needed. If you do not begin to improve over the next 4 days, contact your doctor. If you had an x-ray, CT scan, or ECG (electrocardiogram), it will be reviewed by a specialist. Youll be notified of any new findings that affect your care. Get Prompt Medical Attention if any of the following occur: Stomach pain gets worse or moves to the lower right abdomen (appendix area) Chest pain appears or gets worse, or spreads to the back, neck, shoulder, or arm Frequent vomiting (cant keep down liquids) Blood in the stool or vomit (red or black in color) Feeling weak or dizzy, fainting, or trouble breathing Fever of 100.4F (38C) or higher, or as directed by your healthcare provider [place] Diet A bland diet is used for patients with an upset stomach. It consists of foods that are mild and easy to digest. It is better to eat small frequent meals rather than three large meals a day. BEVERAGES OK: Fruit juices, non-caffeinated teas and coffee, non-carbonated hernandez AVOID: Carbonated beverage, caffeinated tea and coffee, all alcoholic beverages BREAD OK: Refined white, wheat or rye bread, fredy or soda crackers, Claire toast, plain rolls, bagels AVOID: Whole-grain bread CEREAL OK: Refined cereals: cooked or ready to eat AVOID: Whole grain cereals and granola, or those containing bran, seeds or nuts DESSERTS OK: Peanut butter and all others except those to "avoid" AVOID: Chocolate, cocoa, coconut, popcorn, nuts, seeds, jam, marmalade FRUITS OK: Canned, cooked, frozen or fresh fruits without seeds or tough skin AVOID: Olives, skin and seeds of fruit MEATS OK: All fresh or preserved meat, fish and fowl AVOID: Any that are prepared with those spices to "avoid" CHEESE & EGGS OK: Eggs, cottage cheese, cream cheese, other cheeses AVOID: All cheeses made with those spices to "avoid" POTATOES & PASTA OK: Potato, rice, macaroni, noodles, spaghetti AVOID: None SOUPS OK: All soups without heavy seasoning AVOID: Soups made with those spices to "avoid" VEGETABLES OK: Canned, cooked, fresh or frozen mildly flavored vegetables without seeds, skins or coarse fiber AVOID: Vegetables prepared with those spices to "avoid"; skin and seeds of vegetables and those with coarse fiber SPICES OK: Salt, lemon and [place] juice, vinegar, all extracts, mary, cinnamon, thyme, mace, allspice, paprika AVOID: [place] powder, cloves, pepper, seed spices, garlic, gravy pickles, highly seasoned salad dressings Omeprazole Magnesium Gastro-resistant tablet What is this medicine? OMEPRAZOLE (oh ME pray zol) prevents the production of acid in the stomach. It is used to treat the symptoms of heartburn. You can buy this medicine without a prescription. This product is not for long-term use, unless otherwise directed by your doctor or health skin care instructor. How should I use this medicine? Take this medicine by mouth. Follow the directions on the product label. If you are taking this medicine without a prescription, take one tablet every day. Do not use for longer than 14 days or repeat a course of treatment more often than every 4 months unless directed by a doctor or healthcare professional. Take your dose at regular intervals every 24 hours. Swallow the tablet whole with a drink of water. Do not crush, break or chew. This medicine works best if taken on an empty stomach 30 minutes before breakfast. If you are using this medicine with the prescription of your doctor or healthcare professional, follow the directions you were given. Do not take your medicine more often than directed. Talk to your web ui developer regarding the use of this medicine in children. Special care may be needed. What side effects may I notice from receiving this medicine? Side effects that you should report to your doctor or health skin care instructor as soon as possible: allergic reactions like skin rash, itching or hives, swelling of the face, lips, or tongue bone, muscle or joint pain breathing problems chest pain or chest tightness dark yellow or brown urine diarrhea dizziness fast, irregular heartbeat feeling faint or lightheaded fever or sore throat muscle spasm palpitations redness, blistering, peeling or loosening of the skin, including inside the mouth seizures tremors unusual bleeding or bruising unusually weak or tired yellowing of the eyes or skin Side effects that usually do not require medical attention (Report these to your doctor or health skin care instructor if they continue or are bothersome.): constipation dry mouth headache loose stools nausea What may interact with this medicine? Do not take this medicine with any of the following medications: atazanavir clopidogrel nelfinavir This medicine may also interact with the following medications: ampicillin certain medicines for anxiety or sleep certain medicines that treat or prevent blood clots like warfarin cyclosporine diazepam digoxin disulfiram iron salts phenytoin prescription medicine for fungal or yeast infection like itraconazole, ketoconazole, voriconazole saquinavir tacrolimus What if I miss a dose? If you miss a dose, take it as soon as you can. If it is almost time for your next dose, take only that dose. Do not take double or extra doses. Where should I keep my medicine? Keep out of the reach of children. Store at room temperature between 20 and 25 degrees C (68 and 77 degrees F). Protect from light and moisture. Throw away any unused medicine after the expiration date. What should I tell my health care provider before I take this medicine? They need to know if you have any of these conditions: black or bloody stools chest pain difficulty swallowing have had heartburn for over 3 months have heartburn with dizziness, lightheadedness or sweating liver disease stomach pain unexplained weight loss vomiting with blood wheezing an unusual or allergic reaction to omeprazole, other medicines, foods, dyes, or preservatives or trying to get breast-feeding What should I watch for while using this medicine? It can take several days before your heartburn gets better. Check with your doctor or health skin care instructor if your condition does not start to get better, or if it gets worse. Do not treat diarrhea with over the counter products. Contact your doctor if you have diarrhea that lasts more than 2 days or if it is severe and watery. Do not treat yourself for heartburn with this medicine for more than 14 days in a row. You should only use this medicine for a 2-week treatment period once every 4 months. If your symptoms return shortly after your therapy is complete, or within the 4 month time frame, call your doctor or health skin care instructor. You have been given the following additional information: GERD (Adult) Diet, [place] (Adult) Omeprazole Magnesium Gastro-resistant tablet No strenuous activity. Do not work tomorrow, for one day until better. (Electronically signed by Ankit Henderson MD 10/18/2016 21:59)
--- NOTE | 2016-10-18 22:06 | ED DISCHARGE INSTRUCTIONS ---
Patient: FAINA PACHECO General Instructions [facility] VisitID: [id number] [place] [address] 45y, M Registration Date/Time: 10/18/2016 Chest pain of GI origin (due to esophagitis). INSTRUCTIONS No strenuous activity. Do not work tomorrow, for one day until better. Avoid alcohol and NSAIDS. Examples of NSAIDS include aspirin, ibuprofen (Advil) and naproxen (Aleve). Avoid spicy foods. Drink plenty of fluids. Other diet: caffeine. Warnings: Further evaluation is necessary. GENERAL WARNINGS: Return or contact your physician immediately if your condition worsens or changes unexpectedly, if not improving as expected, or if other problems arise. Prescription Medications: Carafate 1 gm tablets: take 1 orally four times daily (1 hour before meals and at bedtime). Dispense sixty (60). No refills. Substitution is permissible. Prilosec 40 mg capsules: take 1 capsule orally every day for 10 days. Dispense ten (10). No refill. Follow-up: Follow up with your doctor in five days even if well. Call for an appointment. Understanding of the discharge instructions verbalized by patient. Discharge instructions reviewed (friend). ADDITIONAL INFORMATION GERD (Adult) The esophagus is a tube that carries food from the mouth to the stomach. A valve at the lower end of the esophagus prevents stomach acid from flowing upward. If this valve does not work properly, acid from the stomach enters the esophagus. If this occurs over and over, the acid will injure the lining of the esophagus. This condition is called GERD (gastroesophageal reflux disease) or acid reflux. When stomach acid flows upward into the esophagus, it causes burning, pressure or sharp pain in the upper abdomen or mid to lower chest. The pain can spread to the neck, back, or shoulder, similar to heart pain (angina). There may be belching, an acid taste in the back of the throat, chronic cough, or sore throat or hoarseness. GERD symptoms often occur during the day after a big meal, but it can also occur at night when lying down. Smoking,as well as drinking alcohol, increases the risk of GERD. GERD is a chronic condition. Once it begins, it is often lifelong. Treatment includes changes in eating habits and the use of acid amena medications to decrease the amount of acid in the stomach. Symptoms often improve with treatment, but if treatment is stopped, the symptoms usually return after a few months. So most persons with GERD will need to continue treatment. Home Care: Take the prescribed acid amena medication for the full course of treatment even if you begin to feel better sooner. This medication can take up to several days to fully control your symptoms. If you cant afford the prescribed medication, you can try ihry-gxn-shpjihj acid blockers, such as Pepcid AC, Tagamet, Zantac, or Aciphex. If these do not relieve your symptoms, a stronger acid-amena can be tried, such as Prilosec OTC. You can use antacids, such as Tums, Rolaids, Mylanta, or Maalox, for pain. This will be useful the first few days after starting acid blockers when the blockers havent started working yet. Follow the directions on the label. Liquid antacids may work better than tablets. Note that antacids can interfere with absorption of certain medications. Specifically, do not take Tagamet (cimetidine), Zantac (ranitidine), or Carafate (sucralfate) within 1 hour of taking an antacid. Talk with your pharmacist if you have any questions. Limit or avoid fatty, fried, and spicy foods, as well as coffee, chocolate, mint, and foods with high acid content such as tomatoes and citrus fruit and juices (orange, grapefruit, lemon). Avoid alcohol and smoking. Dont eat large meals, especially at night. Frequent, smaller meals are best. Do not lie down right after eating. And dont eat anything 3 hours before going to bed. If you are overweight, losing weight will reduce symptoms. Women should not wear corsets or girdles because this increases pressure on the stomach and worsens reflux. If your symptoms occur during sleep, use a foam wedge to elevate your upper body (not just your head.) Or, place 4" blocks under the head of your bed. Follow Up with your doctor or as advised by our staff. Further testing may be needed. If you do not begin to improve over the next 4 days, contact your doctor. If you had an x-ray, CT scan, or ECG (electrocardiogram), it will be reviewed by a specialist. Youll be notified of any new findings that affect your care. Get Prompt Medical Attention if any of the following occur: Stomach pain gets worse or moves to the lower right abdomen (appendix area) Chest pain appears or gets worse, or spreads to the back, neck, shoulder, or arm Frequent vomiting (cant keep down liquids) Blood in the stool or vomit (red or black in color) Feeling weak or dizzy, fainting, or trouble breathing Fever of 100.4F (38C) or higher, or as directed by your healthcare provider [place] Diet A bland diet is used for patients with an upset stomach. It consists of foods that are mild and easy to digest. It is better to eat small frequent meals rather than three large meals a day. BEVERAGES OK: Fruit juices, non-caffeinated teas and coffee, non-carbonated hernandez AVOID: Carbonated beverage, caffeinated tea and coffee, all alcoholic beverages BREAD OK: Refined white, wheat or rye bread, fredy or soda crackers, Claire toast, plain rolls, bagels AVOID: Whole-grain bread CEREAL OK: Refined cereals: cooked or ready to eat AVOID: Whole grain cereals and granola, or those containing bran, seeds or nuts DESSERTS OK: Peanut butter and all others except those to "avoid" AVOID: Chocolate, cocoa, coconut, popcorn, nuts, seeds, jam, marmalade FRUITS OK: Canned, cooked, frozen or fresh fruits without seeds or tough skin AVOID: Olives, skin and seeds of fruit MEATS OK: All fresh or preserved meat, fish and fowl AVOID: Any that are prepared with those spices to "avoid" CHEESE & EGGS OK: Eggs, cottage cheese, cream cheese, other cheeses AVOID: All cheeses made with those spices to "avoid" POTATOES & PASTA OK: Potato, rice, macaroni, noodles, spaghetti AVOID: None SOUPS OK: All soups without heavy seasoning AVOID: Soups made with those spices to "avoid" VEGETABLES OK: Canned, cooked, fresh or frozen mildly flavored vegetables without seeds, skins or coarse fiber AVOID: Vegetables prepared with those spices to "avoid"; skin and seeds of vegetables and those with coarse fiber SPICES OK: Salt, lemon and [place] juice, vinegar, all extracts, mary, cinnamon, thyme, mace, allspice, paprika AVOID: [place] powder, cloves, pepper, seed spices, garlic, gravy pickles, highly seasoned salad dressings Omeprazole Magnesium Gastro-resistant tablet What is this medicine? OMEPRAZOLE (oh ME pray zol) prevents the production of acid in the stomach. It is used to treat the symptoms of heartburn. You can buy this medicine without a prescription. This product is not for long-term use, unless otherwise directed by your doctor or health team primary care physician. How should I use this medicine? Take this medicine by mouth. Follow the directions on the product label. If you are taking this medicine without a prescription, take one tablet every day. Do not use for longer than 14 days or repeat a course of treatment more often than every 4 months unless directed by a doctor or healthcare professional. Take your dose at regular intervals every 24 hours. Swallow the tablet whole with a drink of water. Do not crush, break or chew. This medicine works best if taken on an empty stomach 30 minutes before breakfast. If you are using this medicine with the prescription of your doctor or healthcare professional, follow the directions you were given. Do not take your medicine more often than directed. Talk to your manager games regarding the use of this medicine in children. Special care may be needed. What side effects may I notice from receiving this medicine? Side effects that you should report to your doctor or health team primary care physician as soon as possible: allergic reactions like skin rash, itching or hives, swelling of the face, lips, or tongue bone, muscle or joint pain breathing problems chest pain or chest tightness dark yellow or brown urine diarrhea dizziness fast, irregular heartbeat feeling faint or lightheaded fever or sore throat muscle spasm palpitations redness, blistering, peeling or loosening of the skin, including inside the mouth seizures tremors unusual bleeding or bruising unusually weak or tired yellowing of the eyes or skin Side effects that usually do not require medical attention (Report these to your doctor or health team primary care physician if they continue or are bothersome.): constipation dry mouth headache loose stools nausea What may interact with this medicine? Do not take this medicine with any of the following medications: atazanavir clopidogrel nelfinavir This medicine may also interact with the following medications: ampicillin certain medicines for anxiety or sleep certain medicines that treat or prevent blood clots like warfarin cyclosporine diazepam digoxin disulfiram iron salts phenytoin prescription medicine for fungal or yeast infection like itraconazole, ketoconazole, voriconazole saquinavir tacrolimus What if I miss a dose? If you miss a dose, take it as soon as you can. If it is almost time for your next dose, take only that dose. Do not take double or extra doses. Where should I keep my medicine? Keep out of the reach of children. Store at room temperature between 20 and 25 degrees C (68 and 77 degrees F). Protect from light and moisture. Throw away any unused medicine after the expiration date. What should I tell my health care provider before I take this medicine? They need to know if you have any of these conditions: black or bloody stools chest pain difficulty swallowing have had heartburn for over 3 months have heartburn with dizziness, lightheadedness or sweating liver disease stomach pain unexplained weight loss vomiting with blood wheezing an unusual or allergic reaction to omeprazole, other medicines, foods, dyes, or preservatives or trying to get breast-feeding What should I watch for while using this medicine? It can take several days before your heartburn gets better. Check with your doctor or health team primary care physician if your condition does not start to get better, or if it gets worse. Do not treat diarrhea with over the counter products. Contact your doctor if you have diarrhea that lasts more than 2 days or if it is severe and watery. Do not treat yourself for heartburn with this medicine for more than 14 days in a row. You should only use this medicine for a 2-week treatment period once every 4 months. If your symptoms return shortly after your therapy is complete, or within the 4 month time frame, call your doctor or health team primary care physician. You have been given the following additional information: GERD (Adult) Diet, [place] (Adult) Omeprazole Magnesium Gastro-resistant tablet No strenuous activity. Do not work tomorrow, for one day until better. (Electronically signed by Ankit Henderson MD 10/18/2016 21:59)
--- NOTE | 2016-10-18 22:06 | ED MED RECONCILIATION SUMMARY ---
Patient: FAINA PACHECO Medication Reconciliation Report [facility] VisitID: [id number] [address] [place] [address] 45y, M Registration Date/Time: 10/18/2016 Weight: 129.2 kg Height/Length: 71 in. BMI: 39.7 ALLERGIES: No Known Drug Allergy The patient's Home Medications are listed below: THE FOLLOWING MEDICATIONS NEED TO BE RECONCILED: Blood Pressure pill (new med) chlesterol med Glipizide Oral MetFORMIN HCl Oral The source(s) of the original Home Medication information: patient The following Medications were given to the patient in the Emergency Department: White Gi Cocktail PO Viscous Lidocaine 20, administered: 10/18/2016 5:33:00 PM Carafate [PO] PO 2 gm, administered: 10/18/2016 6:23:00 PM Protonix IVP 80 mg, administered: 10/18/2016 6:20:00 PM The following Medications were prescribed to the patient: Carafate 1 gm tablets: take 1 orally four times daily (1 hour before meals and at bedtime). Dispense sixty (60). No refills. Substitution is permissible. -- Ankit Henderson MD Prilosec 40 mg capsules: take 1 capsule orally every day for 10 days. Dispense ten (10). No refill. -- Ankit Henderson MD
== END 2016-10-18 21:00 | disposition home or self-care (01) ==
LOC: ED SRH 15:32
DX: K20.9 Esophagitis, unspecified (principal); R07.2 Precordial pain; E11.9 Type 2 diabetes mellitus without complications; E78.5 Hyperlipidemia, unspecified; E78.00 Pure hypercholesterolemia, unspecified; I10 Essential (primary) hypertension; Z79.84 Long term (current) use of oral hypoglycemic drugs; Z79.899 Other long term (current) drug therapy; Z87.891 Personal history of nicotine dependence